=== PATIENT | female | born 1955 | race Caucasian/White ===

== ENCOUNTER 2024-10-30 18:46 | Emergency (ER) | payer OTHER ==
--- NOTE | 2024-10-30 20:10 | RAD REPORT ---
EXAMINATION: XR Foot Left 3 View CLINICAL INDICATION: Female, 69 years old[address] [facility] MAIN PAIN Bed: TECHNIQUE: 3 view radiographs of the left foot were obtained. COMPARISON: No prior exam. FINDINGS: Distal tibia and fibula fixation hardware. Mild soft tissue swelling along the anterior ank le. No evidence of fracture or dislocation. Normal alignment. No evidence of arthropathy or other focal bone lesion. IMPRESSION: No acute osseous abnormalities. Mild anterior ankle soft tissue swelling.
--- NOTE | 2024-10-30 20:25 | EDPHYS ---
Physician Documentation [facility] Name: Yamel Angeles Age: 69 yrs Sex: Female : 1955 Arrival Date: 10/30/2024 Time: 18:46 Bed 10 Private MD: ED Physician Chris Palma HPI: 10/30 18:58 This 69 yrs old Female presents to ER via EMS with complaints of Foot Injury. rn 18:58 The patient presents with an injury, pain. The complaints affect the left foot. rn 18:59 Onset: The symptoms/episode began/occurred 2 week(s) ago. Severity of symptoms: At rn their worst the symptoms were moderate, in the emergency department the symptoms are unchanged. Patient reports stomped on door threshold 2 weeks ago. Injured the bottom of her left foot. Has been having tingling and pain since then. No open wounds. No fever or chills. Ambulating but hurts with ambulation. No history of gout. Pain to bottom of foot. Historical: - Allergies: 18:54 No Known Allergies; ld1 - Home Meds: 18:54 None [Active]; ld1 - PMHx: 18:54 None; ld1 - PSHx: 18:54 None; ld1 - Immunization history:: Adult Immunizations up to date. - Infectious Disease History:: Denies. - Social history:: Smoking status: Patient denies any tobacco usage or history of. - Family history:: not pertinent. - Hospitalizations: : No recent hospitalization is reported. ROS: 18:59 Constitutional: Negative for fever, chills, and weight loss, Cardiovascular: Negative rn for chest pain, palpitations, and edema, Respiratory: Negative for shortness of breath, cough, wheezing, and pleuritic chest pain, MS/Extremity: Positive for pain and injury to the left foot Neuro: Positive for tingling and burning sensation to bottom of left foot Exam: 18:59 Constitutional: This is a well developed, well nourished patient who is awake, alert, rn and in no acute distress. MS/ Extremity: Neurovascular intact. No cyanosis or necrosis. No open wounds. Tenderness along plantar surface of left foot without focal tenderness. No deformity of toes. Patient has palpable but weaker pulse on the left foot dorsalis pedis and posterior tibial when compared to the right. Left foot is plethoric and slightly cooler than the right but does have 3-second cap refill and palpable pulse. No evidence of arterial occlusion at this time but patient with evident peripheral vascular disease and arterial insufficiency. Vital Signs: 18:53 BP 108 / 59; Pulse 99; Resp 18; Temp 98.2(O); Pulse Ox 96% on R/A; ld1 MDM: 18:52 Medical Screening Exam initiated rn 20:20 Differential diagnosis: fracture, Arterial insufficiency, peripheral vascular disease. rn Data reviewed: vital signs, nurses notes, radiologic studies, plain films, and as a result, I will discharge patient. Counseling: I had a detailed discussion with the patient and/or guardian regarding the historical points, exam findings, and any diagnostic results supporting the discharge/admit diagnosis, the need for outpatient follow up, to return to the emergency department if symptoms worsen or persist or if there are any questions or concerns that arise at home. Response to treatment: the patient's symptoms have mildly improved after treatment, and as a result, I will discharge patient. Special discussion: I discussed with the patient/guardian in detail that at this point there is no indication for admission to the hospital. It is understood, however, that if the symptoms persist or worsen the patient needs to return immediately for re-evaluation. Based on the history and exam findings, there is no indication for further emergent testing or inpatient evaluation. Vascular surgeon. ED course: Patient with moderate to severe peripheral arterial disease and arterial insufficiency. No evidence of occlusion at this time, has palpable pulses but skin is plethoric and cooler to the touch. Had long discussion with patient and family member, conveyed to them the importance of following up with a vascular surgeon soon and need to stop smoking. Explained to her that if she ignores this this could end up in total occlusion of an artery leading to gangrene/infection/amputation. Patient understands and is going to make an appointment with vascular surgeon. Patient denies any symptoms of claudication or rest pain at this time but I believe she already has advanced disease.. 10/30 18:52 Order name: XRAY Foot LEFT 3 View; Complete Time: 20:11 rn Administered Medications: No medications were administered Disposition Summary: 10/30/24 20:24 Discharge Ordered Notes: Location: Home rn Problem: an ongoing problem rn Symptoms: have improved rn Condition: Stable rn Diagnosis - Pain in left foot rn - Peripheral vascular disease, unspecified rn - Arterial insufficiency rn Followup: rn - With: Private Physician - When: 2 - 3 days - Reason: Further diagnostic work-up, Recheck today's complaints, Continuance of care, Re-evaluation by your physician Discharge Instructions: - Discharge Summary Sheet rn - Peripheral Vascular Disease, [id number] rn - Foot Pain rn Forms: - Medication Reconciliation Form rn - Antibiotic rehab rn - Prescription Opioid Use rn - Patient Portal Instructions rn - Leadership Thank You Letter rn Signatures: Dispatcher [employer] Chris Trujillo MD MD rn Sims, Lauren, RN RN ld1 Corrections: (The following items were deleted from the chart) 20:20 18:59 Constitutional: This is a well developed, well nourished patient who is awake, rn alert, and in no acute distress. MS/ Extremity: Pulses equal, no cyanosis. Neurovascular intact. No cyanosis or necrosis. No open wounds. Tenderness along plantar surface of left foot without focal tenderness. No deformity of toes. rn
--- NOTE | 2024-10-30 20:25 | ER ---
Nurse's Notes [facility] Name: Yamel Angeles Age: 69 yrs Sex: Female : 1955 Arrival Date: 10/30/2024 Time: 18:46 Bed 10 Private MD: Diagnosis: Pain in left foot;Peripheral vascular disease, unspecified;Arterial insufficiency Presentation: 10/30 18:53 Chief complaint: EMS states: toned out to patient home for left foot injury 2 weeks ld1 ago. Coronavirus screen: At this time, the client does not indicate any symptoms associated with coronavirus-19. Ebola Screen: No symptoms or risks identified at this time. Initial Sepsis Screen: Does the patient meet any 2 criteria? No. Patient's initial sepsis screen is negative. Does the patient have a suspected source of infection? No. Patient's initial sepsis screen is negative. Risk Assessment: Do you want to hurt yourself or someone else? Patient reports no desire to harm self or others. Onset of symptoms was October 30, 2024. 18:53 Method Of Arrival: EMS: [facility] ld1 18:53 Acuity: IZA 4 ld1 Triage Assessment: 18:54 General: Appears in no apparent distress. comfortable, Behavior is calm, cooperative, ld1 appropriate for age. Pain: Complains of pain in left foot Pain does not radiate. Pain currently is 8 out of 10 on a pain scale. Quality of pain is described as throbbing, Pain began suddenly, Is continuous. EENT: No signs and/or symptoms were reported regarding the EENT system. Neuro: Level of Consciousness is awake, alert, obeys commands, Oriented to person, place, time, situation, Appropriate for age. Cardiovascular: Capillary refill < 3 seconds Patient's skin is warm and dry. Respiratory: Airway is patent Respiratory effort is even, unlabored. GI: Abdomen is flat, non-distended. : No signs and/or symptoms were reported regarding the genitourinary system. Derm: No signs and/or symptoms reported regarding the dermatologic system. Musculoskeletal: Range of motion: intact in all extremities. 20:00 Injury Description: Feels like she misstepped and is experiencing pain in her left kb3 foot. No bruising or wounds noted. Historical: - Allergies: 18:54 No Known Allergies; ld1 - Home Meds: 18:54 None [Active]; ld1 - PMHx: 18:54 None; ld1 - PSHx: 18:54 None; ld1 - Immunization history:: Adult Immunizations up to date. - Infectious Disease History:: Denies. - Social history:: Smoking status: Patient denies any tobacco usage or history of. - Family history:: not pertinent. - Hospitalizations: : No recent hospitalization is reported. Screenin:00 [facility] ED Fall Risk Assessment (Adult) History of falling in the last 3 months, kb3 including since admission No falls in past 3 months (0 pts) Confusion or Disorientation No (0 pts) Intoxicated or Sedated No (0 pts) Impaired Gait No (0 pts) Mobility Assist Device Used No (0 pt) Altered Elimination No (0 pt) Score/Fall Risk Level 0 - 2 = Low Risk Oriented to surroundings, Maintained a safe environment, Educated pt \T\ family on fall prevention, incl call for assistance when getting out of bed. Abuse screen: Denies threats or abuse. Denies injuries from another. Nutritional screening: No deficits noted. Tuberculosis screening: No symptoms or risk factors identified. Assessment: 20:00 General: Appears in no apparent distress. Behavior is calm, cooperative. kb3 20:00 Pain: Complains of pain in left foot Pain does not radiate. Pain currently is 8 out of kb3 10 on a pain scale. Quality of pain is described as sharp, Pain began 2 weeks. Vital Signs: 18:53 BP 108 / 59; Pulse 99; Resp 18; Temp 98.2(O); Pulse Ox 96% on R/A; ld1 ED Course: 18:49 Patient arrived in ED. al6 18:52 Chris Palma MD is Attending Physician. rn 18:54 Triage completed. ld1 18:54 Arm band placed on right wrist. ld1 19:56 XRAY Foot LEFT 3 View In Process Unspecified. EDMS 20:00 Patient has correct armband on for positive identification. Bed in low position. Call kb3 light in reach. Provided Education on: POC. 20:00 No provider procedures requiring assistance completed. Patient did not have IV access kb3 during this emergency room visit. Administered Medications: No medications were administered Medication: 20:00 VIS not applicable for this client. kb3 Outcome: 20:24 Discharge ordered by . rn 21:06 Discharged to home via wheelchair, kb3 21:06 Condition: stable 21:06 Discharge instructions given to patient, family, Instructed on discharge instructions, follow up and referral plans. Demonstrated understanding of instructions, follow-up care, medications, 21:07 Patient left the ED. kb3 Signatures: Dispatcher [employer] EDMS Chris Palma MD MD rn Sims, Lauren, RN RN ld1 Ruba Aguilar RN RN kb3 Meme Cordova
[2024-10-30 21:18] VITALS: BP 108/59; TEMP 98.2; O2SAT 96
== END 2024-10-30 21:07 | disposition home or self-care (01) ==
LOC: ER 18:46
DX: M79.672 Pain in left foot (principal); I73.9 Peripheral vascular disease, unspecified; I77.1 Stricture of artery
CPT/HCPCS: 99283